=== PATIENT | female | born 1995 | race Two or more races ===

== ENCOUNTER 2021-06-18 14:36 | Emergency (ER) | payer OTHER ==
[~2021-06-18] VITALS: Ht 170.2 cm; Wt 90.9 kg
[2021-06-18 15:05] VITALS: BP 160/94
--- NOTE | 2021-06-18 15:21 | NUR ---
boss dyer: Pt ambulatory to room from lobby at this time.
--- NOTE | 2021-06-18 15:39 | NUR ---
BP & SPO2 MONITORS PLACED. PT VERBALIZES "FEELING BETTER THAN I WAS EARLIER" VSS, CALL LIGHT W/I REACH. PROVIDER EVAL PENDING.
--- NOTE | 2021-06-18 16:25 | NUR ---
TASK RN: DC EDUCATION PROVIDED, PT DEMONSTRATES UNDERSTANDING. PT AMBULATED STEADILY TO DC WITH RN AND FRIEND.
== END 2021-06-18 16:27 | disposition home or self-care (01) ==
LOC: ED 16:15
DX: R55 Syncope and collapse (principal); T50.905A Adverse effect of unspecified drugs, medicaments and biological substances, initial encounter; Y92.9 Unspecified place or not applicable
CPT/HCPCS: 99281

== ENCOUNTER 2021-07-20 07:47 | Outpatient (CLI) | payer OTHER ==
[2021-07-20 08:10] LABS: BASOPHILS % (AUTO) 1 % (0-1); EOSINOPHILS % (AUTO) 2 % (1-7); LYMPHOCYTES % (AUTO) 24 % (22-44); MEAN CORPUSCULAR HEMOGLOBIN 29.7 pg (27.0-34.8); MEAN CORPUSCULAR HGB CONC 33.9 g/dL (32.4-35.8); MEAN PLATELET VOLUME 8.9 fL (7.4-10.4); MONOCYTES % (AUTO) 6 % (2-9); NEUTROPHILS % (AUTO) 68 % (42-75); PLATELET COUNT 247 x10^3/uL (130-400); RED BLOOD COUNT 4.58 x10^6/uL (3.82-5.3); RED CELL DISTRIBUTION WIDTH 13.2 % (9.6-15.2)
[2021-07-20 08:20] LABS: ALBUMIN 3.9 g/dL (3.4-5.0); ANION GAP 6 mmol/L (5-15); CALCIUM 9.2 mg/dL (8.5-10.1); CHLORIDE 106 mmol/L (98-107)
[2021-07-20 08:46] LABS: ALANINE AMINOTRANSFERASE 16 U/L (12-78); ALKALINE PHOSPHATASE 67 U/L (45-117); BILIRUBIN,TOTAL 0.4 mg/dL (0.2-1.0); CHOL/HDL RATIO 2.5; CHOLESTEROL, TOTAL 158 mg/dL (140-239); CREATININE 0.74 mg/dL (0.55-1.02); FOLATE LEVEL 14.8 ng/mL (3.1-17.5); HDL CHOL % 40 % (28-40); HDL CHOLESTEROL (DIRECT) 63 mg/dL (40-60); LDL CHOLESTEROL,CALCULATED 86 mg/dL (54-169); LDL/HDL RATIO 1.4 (0.5-3.0); TRIGLYCERIDES 45 mg/dL (50-200); VLDL CHOLESTEROL 9 mg/dL (0-25)
== END 2021-07-20 23:59 | disposition home or self-care (01) ==
LOC: LAB 07:47
PROVIDERS: ATTEND Physician Assistant
DX: Z13.220 Encounter for screening for lipoid disorders (principal); Z13.1 Encounter for screening for diabetes mellitus; T73.2XXD Exhaustion due to exposure, subsequent encounter; Z83.3 Family history of diabetes mellitus; Z82.49 Family history of ischemic heart disease and other diseases of the circulatory system
CPT/HCPCS: 36415; 80053; 80061; 82306; 82607; 82746; 83036; 84443; 85025